=== PATIENT | female | born 1980 | race Caucasian/White ===

== ENCOUNTER 2024-03-05 11:57 | Emergency (ER) | payer OTHER, SELFPAY ==
[2024-03-05 12:12] VITALS: BP 143/69
[2024-03-05 12:41] LABS: % Basophils 1.1 % (0-2); % Eosinophils 0.4 % (0-6); % Immature Granulocytes 0.3 % (0-0.5); % Lymphocytes 23.2 % (20.5-51.1); % Monocytes 10.7 % (1.7-9.3); % Neutrophils 64.3 % (42.2-75.2); Absolute Basophils 0.1 10^3/uL (0-0.2); Absolute Lymphocytes 1.7 10^3/uL (1.2-3.4); Absolute Monocytes 0.8 10^3/uL (0.1-0.6); Absolute Neutrophils 4.6 10^3/uL (1.4-6.5); Hematocrit 44.7 % (37.0-47.0); Hemoglobin 15.2 g/dL (12.0-16.0); Mean Corpuscular Hgb 30.3 pg (27.0-31.0); Mean Platelet Volume 10.4 fL (7.4-10.4); Nucleated Red Blood Cells % 0 %; Platelet Count 278 10^3/uL (130-400); Red Blood Cell Count 5.02 10^6/uL (4.20-5.40); Red Cell Dist. Width 12.6 % (11.5-14.5); White Blood Cell Count 7.2 10^3/uL (4.8-10.8)
[2024-03-05 12:51] LABS: HCG, Serum Qualitative Screen Negative
[2024-03-05 13:01] LABS: ALT (SGPT) 16 U/L (0-35); AST (SGOT) 23 U/L (14-36); Albumin 4.9 g/dl (3.5-5.0); Alkaline Phosphatase 58 U/L (38-126); Blood Urea Nitrogen 12 mg/dl (7-17); Carbon Dioxide 23 mmol/L (22-30); Chloride 107 mmol/L (98-107); Glucose 90 mg/dl (70-99); Lipase 58 U/L (23-300); Potassium 4.3 mmol/L (3.5-5.1); Sodium 143 mmol/L (135-145); Total Bilirubin 0.9 mg/dl (0.2-1.3); eGFR > 60.00
[2024-03-05 15:06] VITALS: BP 119/69
[2024-03-05 15:08] VITALS: BMI 23.3
--- NOTE | 2024-03-05 15:10 | EDRN ---
Harsha Lee PA in room w/ pt at this time.
--- NOTE | 2024-03-05 15:30 | EDRN ---
Report to Isabella BUCKLEY and pt taken by her to RP #3.
--- NOTE | 2024-03-05 15:50 | ED.GENMED ---
History of Present Illness
General
Chief Complaint: Abdominal Pain
Time Seen by Provider: 03/05/24 14:51
History of Present Illness
History of Present Illness:
43-year-old female with no significant past medical history presents to the emergency department for evaluation of right-sided abdominal pain, she reports having periumbilical discomfort intermittently for the past several weeks that seems to come
and go without obvious provoking or palliating factors. Over the past day the pain became more consistent and migrated toward the right side of the abdomen. Saw her primary care physician who referred her to the emergency department for
appendicitis rule out. Denies any fever, chills, sweats, nausea, vomiting, or diarrhea. No history abdominal surgery
Review of Systems
Review of Systems
Allergies reviewed?: Yes
All Other Systems: ROS reviewed and negative except as documented in HPI and ROS
Phy Exam
Physical Exam
Physical Exam:
GEN: Well appearing, NAD, WDWN
HEENT: Oral mucosa moist, no scleral icterus
Cardiac: Regular rate
Lung: No respiratory distress, no tachypnea
Abdomen: Soft, minimal right-sided abdominal tenderness just right of the umbilicus, no right lower quadrant tenderness, negative McBurney's point, no rigidity
MSK: No gross deformity or injuries
Skin: Good color, no pallor or jaundice, no rashes
Neuro: AO x3, moves all extremities freely
Psych: Calm, cooperative
Course
Orders/Labs/Results
Orders:
Orders
03/05/24 12:19
Test Result ONCE
03/05/24 12:26
Complete Blood Count/With Diff Urgent
Comprehensive Metabolic Panel Urgent
HCG, Serum Qualitative Screen Urgent
Comment: Notify provider if positive test present
Lipase Urgent
03/05/24 15:20
CT Abd/Pel (IV only)-DH only Urgent
Comment:
Reason For Exam: RLQ pain
Abnormal Lab Results
03/05/24
12:26
Absolute Monos (auto) 0.8 H 10^3/uL
(0.1-0.6)
Monocytes % 10.7 H %
(1.7-9.3)
03/05/24 12:26
03/05/24 12:26
Vital Signs
Initial and Last Documented VS:
Initial Vital Signs
Temp Pulse Resp BP Pulse Ox
98.7 F 106 18 143/69 98
03/05/24 12:12 03/05/24 12:12 03/05/24 12:12 03/05/24 12:12 03/05/24 12:12
Last Documented Vital Signs
Temp Pulse Resp BP Pulse Ox
98.7 F 102 18 119/64 98
03/05/24 12:12 03/05/24 16:39 03/05/24 16:39 03/05/24 16:39 03/05/24 16:39
MDM/Problems Addressed
MDM/Problems Addressed:
CT is unremarkable, labs reassuring. Unclear etiology to symptoms. Discharged in stable condition
*Critical Care Note
Total Time (30-74mins, 75-104mins- exclusive of procedures): Not Applicable
ED Attending Note
-
Portions of this chart may have been created with voice recognition software.� Occasional wrong word or��sound alike� substitutions may have occurred due to the inherent limitations of voice recognition software.
Discharge Plan
Departure
Patient Disposition: Home (Routine Discharge)
Date of Disposition: 03/05/24
Time of Disposition: 16:30
Patient with high blood pressure during this ER visit?: No
Discharge Problem:
Right sided abdominal pain
Instructions: Abdominal Pain
Prescriptions:
No Action
Vitamin Tablet
1 tab PO DAILY
acetaminophen 325 MG tablet
650 mg PO Q4HPRN PRN (Reason: mild pain) 0RF
sennosides-docusate sodium 1 TABLET tablet
1 tab PO DAILYPRN PRN (Reason: constipation) 0RF
ibuprofen 600 MG tablet
400 mg PO Q4HPRN PRN (Reason: moderate pain/cramps) 0RF
hydrocortisone 1 APPLIC ointment
0 applic topical BID 0RF
Referrals:
Hui Armijo NP [Family Provider] -
Interventions
Interventions:
*Risk Screen - Suicide Last Done: 03/05/24 12:12
*General Assessment Last Done: 03/05/24 15:04
*Neglect/Abuse Screening Last Done: 03/05/24 12:12
ED- Fall Risk Assessment Last Done: 03/05/24 15:04
*ED COVID-19 Vaccine History Last Done: 03/05/24 12:12
*Nursing Disposition Last Done: 03/05/24 16:39
QK-Nzsoyx-Mtwpirdcyc Assessment Last Done: 03/05/24 15:08
Discharge Date and Time
Discharge Date/Time: 03/05/24 16:41
Print Language: PALAUAN
[2024-03-05 16:39] VITALS: BP 119/64
== END 2024-03-05 16:41 | disposition home or self-care (01) ==
LOC: EMR 11:57
PROVIDERS: Emergency Medicine; EMERGENCY PHYSICIAN Emergency Medicine; FAMILY PHYSICIAN Nurse Practitioner Family
DX: R10.9 Unspecified abdominal pain (principal)
CPT/HCPCS: 99285; 74177; 80053; 83690; 84703; 85025; Q9967